=== PATIENT | male | born 1980 | race Caucasian/White ===

== ENCOUNTER 2024-07-01 00:11 | Emergency (ER) | payer OTHER, SELFPAY ==
[2024-07-01 00:14] VITALS: BP 206/132
[2024-07-01 00:30] VITALS: BP 155/90
[2024-07-01] MEDS: TORADOL 15 MG IV (00:32)
[2024-07-01] MEDS: ZOFRAN 4 MG IV (00:33)
--- NOTE | 2024-07-01 00:43 | ED.GENMED ---
History of Present Illness
General
Chief Complaint: Flank Pain
Source: patient and spouse (States he threw up)
Exam Limitations: none
Time Seen by Provider: 07/01/24 00:35
Nursing documentation reviewed up to this point in time: agreed with
History of Present Illness
History of Present Illness:
44-year-old male presents emergency department complaining of right flank pain since 10 PM. He has had nausea and vomiting. He states he is having difficulty urinating
Past History
Past History
ED Past Medical History: Other (Sciatica)
ED Past Surgical History: Orthopedic (Back and knee)
Social History
Tobacco: Non-smoker
Alcohol: None
Drug: None
Living: with family
Employment: Employed
Review of Systems
Review of Systems
Allergies reviewed?: Yes
All Other Systems: Not applicable
Constitutional: Reports no symptoms
EENT: Reports no symptoms
Respiratory: Reports no symptoms
Cardiac: Reports no symptoms
ABD/GI: Reports nausea and vomiting
: Reports flank pain
Musculoskeletal: Reports no symptoms
Skin: Reports no symptoms
Neurological: Reports no symptoms
Endocrine: Reports no symptoms
Hematologic/Lymphatic: Reports no symptoms
Psychiatric: Reports no symptoms
Phy Exam
Physical Exam
Physical Exam:
Physical Exam
General: Appears uncomfortable, afebrile
Neck: supple. no meningeal signs. normal posterior pharynx
Heart: s1/s2 regular rate and rhythm, no murmur. equal radial
pulses.
HEENT: Pupils equal round reactive to light, EOMI
Lungs: no acute respiratory distress. clear bilaterally
Abdomen: normal bowel sounds. not tender. no CVAT
Neuro: alert and oriented. no focal neurological deficits cranial nerves II through XII intact
Skin: no rash
Psychiatric: well kept. interactive and cooperative
Extremities: no edema. no calf tenderness. negative homans. good distal pulses
Course
Orders/Labs/Results
Orders:
Orders
07/01/24 00:30
Ketorolac [Toradol] 15 mg IV NOW STA
Ondansetron Injectable [Zofran] 4 mg IV NOW STA
07/01/24 00:36
Urinalysis Reflex To Culture Urgent
Date Specimen was Collected: 07/01/24
Time Specimen was Collected: 00:29
Urine Microscopic Reflex Cult Urgent
07/01/24 00:37
CMP [Comprehensive Metabolic Panel] Urgent
Complete Blood Count/With Diff Urgent
07/01/24 00:42
CT Abd/pel Without Iv Or Oral Urgent
Comment:
Reason For Exam: right flank pain since 2199, n/v
Abnormal Lab Results
07/01/24 07/01/24
00:36 00:37
MCHC 32.4 L g/dL
(33.0-37.0)
Absolute Neuts (auto) 7.5 H 10^3/uL
(1.4-6.5)
Absolute Monos (auto) 0.8 H 10^3/uL
(0.1-0.6)
Lymphocytes % 16.5 L %
(20.5-51.1)
BUN 24 H mg/dl
(9-20)
Creatinine 1.5 H mg/dL
(0.7-1.3)
Glucose 138 H mg/dl
(70-99)
Calcium 10.3 H mg/dl
(8.4-10.2)
Albumin 5.1 H g/dl
(3.5-5.0)
Ur Occult Blood Reflex 3+ A
(Negative)
Urine RBC 16-20 A /HPF
(0-2)
Urine Bacteria (Reflex) Few A
(Negative)
Urine Albumin (Reflex) 2+ A
(Neg - Trace)
07/01/24 00:37
07/01/24 00:37
Vital Signs
Initial and Last Documented VS:
Initial Vital Signs
Temp Pulse Resp BP Pulse Ox
98.8 F 88 26 206/132 98
07/01/24 00:14 07/01/24 00:14 07/01/24 00:14 07/01/24 00:14 07/01/24 00:14
Last Documented Vital Signs
Temp Pulse Resp BP Pulse Ox
98.8 F 76 18 142/86 98
07/01/24 00:14 07/01/24 01:30 07/01/24 01:30 07/01/24 01:30 07/01/24 01:30
MDM/Problems Addressed
Differential Diagnosis Includes:
Urinary tract infection, ureteral calculus
MDM/Problems Addressed:
44-year-old male with right ureteral calculus at UVJ, no signs of UTI. Mild elevation in creatinine. Will have patient hydrate, avoid NSAIDs and follow-up with urology as needed. Urine screen given.
*Radiology
Radiology exam reviewed: radiology read reviewed (CT abdomen pelvis shows 3 mm stone at right UVJ with mild right hydronephrosis)
*Pulse Oximetry
Patient hypoxic: no
*Critical Care Note
Total Time (30-74mins, 75-104mins- exclusive of procedures): Not Applicable
Patient Management
Social determinants of health affecting care: Living situation and Strong social support
Escalation/DeEscalation of care consider admission/obs:
Admit not indicated
ED Attending Note
-
Portions of this chart may have been created with voice recognition software.� Occasional wrong word or��sound alike� substitutions may have occurred due to the inherent limitations of voice recognition software.
Discharge Plan
Departure
Patient Disposition: Home (Routine Discharge)
Date of Disposition: 07/01/24
Time of Disposition: 01:40
Patient with high blood pressure during this ER visit?: Yes
Condition: Good
Discharge Problem:
Calculus of distal right ureter, Creatinine elevation
Instructions: Kidney Stones (DC), How to Strain Your Urine
Prescriptions:
No Action
rosuvastatin 5 mg Tablet
5 mg PO DAILY
Referrals:
Sharad Burton MD [Family Provider] - Call in 1-3 days for appt
Marcos Hernandez Jr., MD [Active] - Call in 1-3 days for appt
Activity Restrictions/Additional Instructions:
Follow up with urology if you do not pass the stone. Avoid NSAIDs such as ibuprofen and celecoxib until you get a repeat creatinine by your primary care doctor
Interventions
Interventions:
*Risk Screen - Suicide Last Done: 07/01/24 00:14
*General Assessment Last Done: 07/01/24 01:00
*Neglect/Abuse Screening Last Done: 07/01/24 00:14
ED- Fall Risk Assessment Last Done: 07/01/24 00:50
*ED COVID-19 Vaccine History Last Done: 07/01/24 01:00
AR-Orlbqb-Fuyzffceoi Assessment Last Done: 07/01/24 00:50
ED-Male Genitourinary Assessment Last Done: 07/01/24 00:50
Discharge Date and Time
Print Language: [id number]
[2024-07-01 00:44] LABS: Urine Albumin 2+ (Neg - Trace); Urine Bilirubin Negative (Negative); Urine Character Clear (Clear); Urine Color Yellow; Urine Glucose Negative (Negative); Urine Ketone Negative (Negative); Urine Leukocyte Negative (Negative); Urine Nitrite Negative (Negative); Urine Occult Blood 3+ (Negative); Urine Urobilinogen Negative (Neg - 1+)
[2024-07-01 00:49] LABS: % Basophils 0.4 % (0-2); % Eosinophils 0.6 % (0-6); % Immature Granulocytes 0.4 % (0-0.5); % Lymphocytes 16.5 % (20.5-51.1); % Monocytes 7.8 % (1.7-9.3); % Neutrophils 74.3 % (42.2-75.2); Absolute Eosinophils 0.1 10^3/uL (0-0.7); Absolute Lymphocytes 1.7 10^3/uL (1.2-3.4); Absolute Monocytes 0.8 10^3/uL (0.1-0.6); Absolute Neutrophils 7.5 10^3/uL (1.4-6.5); Hematocrit 45.4 % (39.0-52.0); Hemoglobin 14.7 g/dL (13.0-18.0); Mean Corp Hgb Conc. 32.4 g/dL (33.0-37.0); Mean Corpuscular Hgb 30.1 pg (27.0-31.0); Mean Platelet Volume 10.3 fL (7.4-10.4); Nucleated Red Blood Cells % 0 % (-); Platelet Count 238 10^3/uL (130-400); Red Blood Cell Count 4.88 10^6/uL (4.70-6.10); Red Cell Dist. Width 13.4 % (11.5-14.5); White Blood Cell Count 10.1 10^3/uL (4.8-10.8)
[2024-07-01 00:58] LABS: ALT (SGPT) 45 U/L (0-50); AST (SGOT) 26 U/L (17-59); Albumin 5.1 g/dl (3.5-5.0); Alkaline Phosphatase 80 U/L (38-126); Blood Urea Nitrogen 24 mg/dl (9-20); Calcium 10.3 mg/dl (8.4-10.2); Carbon Dioxide 28 mmol/L (22-30); Chloride 100 mmol/L (98-107); Glucose 138 mg/dl (70-99); Potassium 3.8 mmol/L (3.5-5.1); Sodium 140 mmol/L (135-145); Total Bilirubin 0.7 mg/dl (0.2-1.3); Total Protein 7.9 g/dl (6.3-8.2); eGFR 59.24
[2024-07-01 01:06] VITALS: BMI 38.0
[2024-07-01 01:14] LABS: Urine Squamous Cell 0-2 /LPF (Few)
[2024-07-01 01:15] LABS: Urine Bacteria Few (Negative); Urine Red Blood Cell 16-20 /HPF (0-2)
[2024-07-01 01:30] VITALS: BP 142/86
== END 2024-07-01 02:00 | disposition home or self-care (01) ==
LOC: EMR 00:11
PROVIDERS: EMERGENCY PHYSICIAN Emergency Medicine; FAMILY PHYSICIAN Family Medicine
DX: N13.2 Hydronephrosis with renal and ureteral calculous obstruction (principal); R79.89 Other specified abnormal findings of blood chemistry
CPT/HCPCS: 96374; 96375; 99284; 74176; 80053; 81003; 81015; 85025